=== PATIENT | female | born 1935 | race Caucasian/White ===

== ENCOUNTER 2018-03-13 17:45 | Emergency (ER) | payer MEDICARE, OTHER ==
[~2018-03-13] VITALS: Ht 175.3 cm; Wt 65.0 kg
[2018-03-13 17:57] VITALS: BP 140/74
[2018-03-13 19:09] LABS: MICROSCOPIC INDICATED
[2018-03-13 19:10] LABS: CULTURE INDICATED? YES
== END 2018-03-13 19:53 | disposition home or self-care (01) ==
LOC: ED 19:10
DX: N30.00 Acute cystitis without hematuria (principal); M79.652 Pain in left thigh; I10 Essential (primary) hypertension; E11.9 Type 2 diabetes mellitus without complications; G30.9 Alzheimer's disease, unspecified; F02.80 Dementia in other diseases classified elsewhere, unspecified severity, without behavioral disturbance, psychotic disturbance, mood disturbance, and anxiety
CPT/HCPCS: 81001; 87077; 87086; 87186; 93005; 99285

== ENCOUNTER 2018-08-27 08:33 | Observation (INO) | payer MEDICARE, OTHER ==
[~2018-08-27] VITALS: Ht 167.6 cm; Wt 71.7 kg
--- NOTE | 2018-08-27 08:53 | NUR ---
PT OFF TO CT AT THIS TIME FAMILY IS NOW A THE BS
[2018-08-27 09:21] LABS: BASOPHILS # (AUTO) 0.02 x10^3/uL (0-0.1); BASOPHILS % (AUTO) 1 % (0-1); EOSINOPHILS # (AUTO) 0.14 x10^3/uL (0-0.4); EOSINOPHILS % (AUTO) 3 % (1-7); LYMPHOCYTES # (AUTO) 1.83 x10^3/uL (1-3.4); LYMPHOCYTES % (AUTO) 38 % (22-44); MD NO; MEAN CORPUSCULAR VOLUME 88.5 fL (80-100); MEAN PLATELET VOLUME 9.8 fL (7.4-10.4); MONOCYTES # (AUTO) 0.36 x10^3/uL (0.2-0.8); MONOCYTES % (AUTO) 7 % (2-9); NEUTROPHILS # (AUTO) 2.51 x10^3/uL (1.8-6.8); NEUTROPHILS % (AUTO) 52 % (42-75); PLATELET COUNT 215 x10^3/uL (130-400); RED BLOOD COUNT 4.88 x10^6/uL (3.82-5.3); RED CELL DISTRIBUTION WIDTH 12.2 % (9.6-15.2)
[2018-08-27 09:35] LABS: ALBUMIN 3.7 g/dL (3.4-5.0); ANION GAP 5 mmol/L (5-15); CALCIUM 9.7 mg/dL (8.5-10.1); CHLORIDE 111 mmol/L (98-107); CREATININE 0.86 mg/dL (0.55-1.02)
[2018-08-27 09:39] LABS: TROPONIN I < 0.015 ng/mL (0.000-0.045)
[2018-08-27 10:01] LABS: CULTURE INDICATED? YES; MICROSCOPIC INDICATED
[2018-08-27] MEDS ORDERED: CEFTRIAXONE PMX 1GM/50ML 50 ML IV ONE (11:00)
--- NOTE | 2018-08-27 11:40 | NUR ---
PT ASHLEY ELIZABETH FAMILY REMAINS AT THE BS HOSPITALIST HAS BEEN IN TO SEE THE PT
[2018-08-27] MEDS ORDERED: BISACODYL 10 MG SUPP PR PRN (12:00)
[2018-08-27] MEDS ORDERED: ENALAPRILAT 1.25 MG/ML, 2ML IVPush PRN (12:00)
[2018-08-27] MEDS ORDERED: POLYETHYLENE GLYCOL 17 GM PACKET PO PRN (12:00)
[2018-08-27] MEDS ORDERED: CEFTRIAXONE PMX 1GM/50ML 50 ML IV SCH (12:00)
[2018-08-27] MEDS ORDERED: DOCUSATE 100 MG CAPSULE PO PRN (12:00)
[2018-08-27] MEDS ORDERED: ENOXAPARIN 40 MG/0.4 ML SQ SCH (12:00)
[2018-08-27] MEDS ORDERED: ACETAMINOPHEN 325 MG TABLET PO PRN (12:00)
[2018-08-27] MEDS ORDERED: ONDANSETRON 2MG/ML, 2ML IVPush PRN (12:00)
--- NOTE | 2018-08-27 12:46 | NUR ---
LUNCH BREAK NOTE: PT RESTING IN BED IN NAD. VSS. 3 P'S ADDRESSED. MEAL TRAY ORDERED FOR PT.
[2018-08-27] MEDS ORDERED: ENOXAPARIN 40 MG/0.4 ML ONE (13:25)
--- NOTE | 2018-08-27 14:10 | NUR ---
REPORT CALLED TO THE FLOOR
[2018-08-27 14:48] VITALS: BP 153/77
[2018-08-27 20:26] VITALS: BP 136/73
[2018-08-27] MEDS: SODIUM CHLORIDE FLUSH 10ML SYR IVF SCH (21:15)
[2018-08-28 03:22] VITALS: BP 109/68
[2018-08-28 06:03] LABS: BASOPHILS # (AUTO) 0.04 x10^3/uL (0-0.1); BASOPHILS % (AUTO) 1 % (0-1); EOSINOPHILS # (AUTO) 0.15 x10^3/uL (0-0.4); EOSINOPHILS % (AUTO) 3 % (1-7); LYMPHOCYTES # (AUTO) 2.05 x10^3/uL (1-3.4); LYMPHOCYTES % (AUTO) 41 % (22-44); MD NO; MEAN CORPUSCULAR HEMOGLOBIN 30.4 pg (27.0-34.8); MEAN CORPUSCULAR HGB CONC 34.4 g/dL (32.4-35.8); MEAN CORPUSCULAR VOLUME 88.3 fL (80-100); MONOCYTES # (AUTO) 0.42 x10^3/uL (0.2-0.8); MONOCYTES % (AUTO) 8 % (2-9); NEUTROPHILS # (AUTO) 2.35 x10^3/uL (1.8-6.8); NEUTROPHILS % (AUTO) 47 % (42-75); PLATELET COUNT 210 x10^3/uL (130-400); RED BLOOD COUNT 4.68 x10^6/uL (3.82-5.3); RED CELL DISTRIBUTION WIDTH 12.3 % (9.6-15.2)
[2018-08-28 06:09] LABS: ANION GAP 8 mmol/L (5-15); CALCIUM 8.9 mg/dL (8.5-10.1); CHLORIDE 110 mmol/L (98-107); CREATININE 0.78 mg/dL (0.55-1.02)
[2018-08-28 07:21] VITALS: BP 161/76
[2018-08-28] MEDS: SODIUM CHLORIDE FLUSH 10ML SYR IVF SCH (09:00)
[2018-08-28] MEDS ORDERED: CEFD300C37 PO (11:35)
== END 2018-08-28 13:22 | disposition home or self-care (01) ==
LOC: ED 09:56 → EDIP 11:06 → INTOOBSV 11:06 → 4WST 14:18
PROVIDERS: ADMIT Internal Medicine; ATTEND Internal Medicine
DX: R55 Syncope and collapse (principal); N39.0 Urinary tract infection, site not specified; F02.80 Dementia in other diseases classified elsewhere, unspecified severity, without behavioral disturbance, psychotic disturbance, mood disturbance, and anxiety; I11.0 Hypertensive heart disease with heart failure; I50.9 Heart failure, unspecified; Z82.49 Family history of ischemic heart disease and other diseases of the circulatory system; Z87.440 Personal history of urinary (tract) infections
CPT/HCPCS: 36415; 70450; 71045; 80048; 81001; 82040; 84484; 85025; 87077; 87086; 87186; 93005; 96365; 96372; 99284; G0378; J0696; J1650